=== PATIENT | female | born 1945 | race Caucasian/White ===

== ENCOUNTER → 2017-12-04 | Outpatient (CLI) | payer MEDICARE, OTHER ==
[~2017-12-04] MED LIST: CAND16 PO; NEBI5 PO
[2017-12-04 08:47] LABS: BASOPHILS ABSOLUTE AUTO 0.03 K/mm3 (0.00-0.23); BASOPHILS PERCENT AUTO 0 % (0-2); EOSINOPHILS ABSOLUTE AUTO 0.13 K/mm3 (0.00-0.68); EOSINOPHILS PERCENT AUTO 2 % (0-6); Hematocrit 37.1 % (33.0-51.0); Hemoglobin 12.6 g/dL (11.5-16.0); IMMATURE GRAN ABSOLUTE AUTO 0.02 K/mm3 (0.00-0.10); IMMATURE GRAN PERCENT AUTO 0 % (0-1); LYMPHOCYTES ABSOLUTE AUTO 2.36 K/mm3 (0.84-5.20); LYMPHOCYTES PERCENT AUTO 35 % (21-46); MONOCYTES ABSOLUTE AUTO 0.42 K/mm3 (0.16-1.47); MONOCYTES PERCENT AUTO 6 % (4-13); Mean Corpuscular HGB 31.3 pg (26.0-34.0); Mean Corpuscular Volume 92 fL (80-100); Mean Platelet Volume 9.1 fL (9.1-12.4); NEUTROPHILS ABSOLUTE AUTO 3.76 K/mm3 (1.96-9.15); NEUTROPHILS PERCENT AUTO 56 % (41-73); Platelet Count 260 K/mm3 (150-400); RDW Coefficient Variation 12.8 % (11.7-14.2); RDW Standard Deviation 43.1 fL (35.1-46.3); Red Blood Cell Count 4.02 M/mm3 (3.80-5.20); White Blood Cell Count 6.72 K/mm3 (4.00-11.30)
[2017-12-04 09:13] LABS: Alanine Aminotransfer (ALT/SGP 23 U/L (12-78); Albumin, Blood 3.8 g/dL (3.4-5.0); Albumin/Globulin Ratio 1.1 (0.8-1.8); Alk Phos 120 U/L (40-126); Anion Gap 7 mmol/L (6-16); Aspartate Aminotrans (AST/SGOT 15 U/L (12-37); Bilirubin, Total 0.3 mg/dL (0.1-1.0); Blood Urea Nitrogen 16 mg/dL (8-24); Bun/Creatinine Ratio 14.4 (12.0-20.0); CO2, Blood 28 mmol/L (21-32); Calcium, Blood 9.1 mg/dL (8.5-10.1); Chloride, Blood 105 mmol/L (98-108); Creatinine, Blood 1.11 mg/dL (0.40-1.00); Globulin, Blood 3.5 g/dL (2.2-4.0); Glomerular Filtration Rate 48 (60-); Glucose, Blood 96 mg/dL (70-99); Magnesium, Blood 1.9 mg/dL (1.6-2.4); Potassium, Blood 3.8 mmol/L (3.5-5.5); Sodium, Blood 140 mmol/L (136-145); Thyroid Stimulating Hormone 2.061 uIU/mL (0.360-4.800); Total Protein, Blood 7.3 g/dL (6.4-8.2); Troponin I <0.017 ng/mL (0.000-0.040)
== END | disposition home or self-care (01) ==
LOC: LAB 08:43
PROVIDERS: Physician Assistant Medical
DX: R00.2 Palpitations (principal); R07.9 Chest pain, unspecified; R06.00 Dyspnea, unspecified
CPT/HCPCS: 80053; 83735; 83880; 84443; 84484; 85025

== ENCOUNTER 2023-02-26 11:05 | Observation (INO) | payer MEDICARE, OTHER ==
[~2023-02-26] VITALS: Ht 162.6 cm; Wt 82.5 kg
[2023-02-26] MEDS ORDERED: FAMO20 PO (11:24)
[2023-02-26 12:24] LABS: BASOPHILS ABSOLUTE AUTO 0.04 K/mm3 (0.00-0.23); BASOPHILS PERCENT AUTO 1 % (0-2); EOSINOPHILS ABSOLUTE AUTO 0.09 K/mm3 (0.00-0.68); EOSINOPHILS PERCENT AUTO 1 % (0-6); Hematocrit 39.1 % (33.0-51.0); Hemoglobin 13.1 g/dL (11.5-16.0); IMMATURE GRAN ABSOLUTE AUTO 0.02 K/mm3 (0.00-0.10); IMMATURE GRAN PERCENT AUTO 0 % (0-1); LYMPHOCYTES ABSOLUTE AUTO 2.26 K/mm3 (0.84-5.20); LYMPHOCYTES PERCENT AUTO 28 % (21-46); MONOCYTES ABSOLUTE AUTO 0.52 K/mm3 (0.16-1.47); MONOCYTES PERCENT AUTO 6 % (4-13); Mean Corpuscular HGB 30.6 pg (26.0-34.0); Mean Corpuscular HGB Conc 33.5 g/dL (31.5-36.5); Mean Corpuscular Volume 91 fL (80-100); NEUTROPHILS PERCENT AUTO 64 % (41-73); Platelet Count 295 K/mm3 (150-400); RDW Coefficient Variation 12.9 % (11.7-14.2); RDW Standard Deviation 43.1 fL (35.1-46.3); Red Blood Cell Count 4.28 M/mm3 (3.80-5.20); White Blood Cell Count 8.13 K/mm3 (4.00-11.30)
[2023-02-26 12:47] LABS: Albumin, Blood 3.8 g/dL (3.4-5.0); Albumin/Globulin Ratio 1.2 (0.8-1.8); Bilirubin, Total 0.7 mg/dL (0.1-1.0); Bun/Creatinine Ratio 23.8 (12.0-20.0); Calcium, Blood 9.4 mg/dL (8.5-10.1); Creatinine, Blood 1.05 mg/dL (0.40-1.00); Globulin, Blood 3.3 g/dL (2.2-4.0); Total Protein, Blood 7.1 g/dL (6.4-8.2)
[2023-02-26 13:33] LABS: Influenza A, PCR NEGATIVE (NEGATIVE); Influenza B, PCR NEGATIVE (NEGATIVE); Resp Syncytial Virus, PCR NEGATIVE (NEGATIVE); SARS-Cov-2 (COVID-19) PCR, MMC NEGATIVE (NEGATIVE)
[2023-02-26 18:21] VITALS: BP 157/100
--- NOTE | 2023-02-26 18:25 | NUR ---
NEW ER ADMIT Patient admitted for chest pain, denies cardiac sx at this time. Telemetry ordered. Patient is AOx4, independent in the room. IV in right AC placed by EFM. Cardiac diet ordered. Vitals stable, BP elevated. Will continue plan of care.
[2023-02-26 19:37] VITALS: BP 139/75
[2023-02-27 03:32] VITALS: BP 119/62
--- NOTE | 2023-02-27 03:46 | NUR ---
SHIFT UNREMARKABLE. PT HAD MANY QUESTIONS ABOUT NIGHT TIME MEDICATIONS, NEED FOR THEM, THEIR EFFECTS, AND MORE. ULTIMATELY DECIDED TO TAKE THE [place] BUT REFUSED [facility] FOR TIME BEING. WANTS TO HAVE CONVERSATION WITH PRESCRIBING PHYSICIAN AND POSSIBLY HER PCP BEFORE TAKING NEW MEDICATIONS. OTHERWISE SHIFT HAS BEEN VERY UNREMARKABLE. PT HAS BEEN AOX4, PLEASANT, COOPERATIVE WITH CARE. VERY APPRECIATIVE OF CARE. TRANSFERS INDEPENDENTLY WITHIN ROOM. CALLS APPROPRIATELY. BED LOCKED IN LOWEST POSITION. CALL LIGHT LEFT WITHIN REACH.
[2023-02-27 05:26] LABS: BASOPHILS ABSOLUTE AUTO 0.03 K/mm3 (0.00-0.23); BASOPHILS PERCENT AUTO 0 % (0-2); EOSINOPHILS ABSOLUTE AUTO 0.23 K/mm3 (0.00-0.68); EOSINOPHILS PERCENT AUTO 3 % (0-6); Hematocrit 36.2 % (33.0-51.0); IMMATURE GRAN ABSOLUTE AUTO 0.01 K/mm3 (0.00-0.10); IMMATURE GRAN PERCENT AUTO 0 % (0-1); LYMPHOCYTES ABSOLUTE AUTO 2.61 K/mm3 (0.84-5.20); LYMPHOCYTES PERCENT AUTO 35 % (21-46); MONOCYTES ABSOLUTE AUTO 0.54 K/mm3 (0.16-1.47); MONOCYTES PERCENT AUTO 7 % (4-13); Mean Corpuscular HGB 30.7 pg (26.0-34.0); Mean Corpuscular HGB Conc 33.1 g/dL (31.5-36.5); Mean Corpuscular Volume 93 fL (80-100); Mean Platelet Volume 9.5 fL (9.1-12.4); NEUTROPHILS ABSOLUTE AUTO 3.98 K/mm3 (1.96-9.15); NEUTROPHILS PERCENT AUTO 54 % (41-73); Platelet Count 263 K/mm3 (150-400); RDW Coefficient Variation 13.3 % (11.7-14.2); RDW Standard Deviation 45.1 fL (35.1-46.3); Red Blood Cell Count 3.91 M/mm3 (3.80-5.20)
[2023-02-27 05:53] LABS: Albumin, Blood 3.4 g/dL (3.4-5.0); Albumin/Globulin Ratio 1.2 (0.8-1.8); Bilirubin, Total 0.7 mg/dL (0.1-1.0); Bun/Creatinine Ratio 21.4 (12.0-20.0); Calcium, Blood 8.7 mg/dL (8.5-10.1); Creatinine, Blood 1.12 mg/dL (0.40-1.00); Globulin, Blood 2.9 g/dL (2.2-4.0); Magnesium, Blood 1.9 mg/dL (1.6-2.4); Phosphorus, Blood 3.3 mg/dL (2.5-4.9); Potassium, Blood 3.9 mmol/L (3.5-5.5); Thyroid Stimulating Hormone 1.25 uIU/mL (0.360-4.800); Total Protein, Blood 6.3 g/dL (6.4-8.2)
[2023-02-27 08:04] VITALS: BP 151/84
[2023-02-27] MEDS ORDERED: LOSA50 PO (11:19)
[2023-02-27] MEDS ORDERED: ELIQUIS5 M2 PO (11:20)
[2023-02-27] MEDS ORDERED: METOPROLOL SUCC25 MG PO (11:21)
--- NOTE | 2023-02-27 14:43 | NUR ---
DISCHARGE MS MONTES DE OCA WAS DISCHARGED HOME WITH HER GRANDDAUGHTER AT 1400HRS. PIV WAS PAINFUL AND REMOVED THIS AM, ATTEMPTED TO REPLACE X 4 WITH RN AND 2 RELIEF CHARGE RNS, THEN D/C ORDERS PLACED SO ABORTED. PT VERY TOLERANT OF ATTEMPTS. SHE REFUSED ELO[facility] THIS AM, WANTING TO DISCUSS WITH DR MCCARTHY. SHE THEN AGREED TO TAKE [facility] A HOME PRESCRIPTION BUT WANTED IT SENT TO [facility] MA[facility] DUE TO EXPENSE OF PRESCRIPTION. DR MCCARTHY INFORMED THAT PT MAY NOT GET PRESCRIPTION UNTIL RECEIVED IN THE MAIL, NO CHANGE IN ORDERS. PT WILL TRY AT HER CLINIC FOR SAMPLES AFTER DISCHARGE. PT IN SR WHEN ON TELEMETRY, NO CALLS FROM [employer].
== END 2023-02-27 14:13 | disposition home or self-care (01) ==
LOC: ER 11:05 → MEDS 11:06
PROVIDERS: Emergency Medicine; ADMIT Internal Medicine
DX: I48.91 Unspecified atrial fibrillation (principal); I12.9 Hypertensive chronic kidney disease with stage 1 through stage 4 chronic kidney disease, or unspecified chronic kidney disease; N18.31 Chronic kidney disease, stage 3a; K21.9 Gastro-esophageal reflux disease without esophagitis; E78.5 Hyperlipidemia, unspecified; Z79.899 Other long term (current) drug therapy; Z88.5 Allergy status to narcotic agent; Z20.822 Contact with and (suspected) exposure to COVID-19
CPT/HCPCS: 0241U; 36415; 71045; 80053; 83036; 83735; 83880; 84100; 84443; 84484; 85025; 93005; 93010; 96360; 96361; 99285-25; A9270; G0378; J7030

== ENCOUNTER 2024-07-21 08:31 | Day surgery (SDC) | payer MEDICARE, OTHER ==
[~2024-07-21] VITALS: Ht 162.6 cm; Wt 85.4 kg
[2024-07-21] VITALS (15 sets, daily range): BP systolic 119–190; BP diastolic 58–114
[~2024-07-21 08:31] MED LIST changes: +Amlodipine Bes2.5 MG PO; +ELIQUIS5 M2 PO; +FAMO20 PO; +LOSA50 PO; +METOPROLOL SUCC25 MG PO
[2024-07-21] MEDS ORDERED: Lactated Ringer's 1,000 ML IV SCH ×2 (09:00→10:55)
[2024-07-21] MEDS ORDERED: Chlorhexidine Mouth Care 15 ML UDC MT SCH (09:00)
[2024-07-21] MEDS ORDERED: Ropivacaine 0.5% HCl/Pf 123.125 MG,EPINEPHrine HCL 0.25 MG,Ketorolac Tromethamine 15 MG... INFIL SCH (09:00)
[2024-07-21] MEDS ORDERED: CeFAZolin Sodium 2,000 MG in NS 100 ML IV SCH ×2 (09:00→19:00)
[2024-07-21] MEDS ORDERED: Acetaminophen 500 MG Tab PO SCH ×2 (09:00→16:00)
[2024-07-21] MEDS ORDERED: OxyCODONE HCL 10 MG TABCR PO SCH (09:00)
[2024-07-21] MEDS ORDERED: Tranexamic Acid 100 ML IV SCH (09:06)
--- NOTE | 2024-07-21 10:40 | NUR ---
History, Chart, Medications and Allergies reviewed before start of procedure.PRE OP TEACHING DONE. LUNGS CLEAR. FAMILY AT BEDSIDE
[2024-07-21] MEDS ORDERED: OxyCODONE HCL 5 MG TAB PO PRN ×2 (10:45→10:50)
[2024-07-21] MEDS ORDERED: Midazolam HCl 1MG / ML 2ML Vial IV ONE (10:45)
[2024-07-21] MEDS ORDERED: Promethazine HCl 25 MG Tab PO PRN ×2 (10:50→18:55)
[2024-07-21] MEDS ORDERED: Magnesium Hydroxide Conc 10 ML UDC PO PRN (10:50)
[2024-07-21] MEDS ORDERED: Metoclopramide HCl 5MG / ML 2ML Vial IV PRN (10:50)
[2024-07-21] MEDS ORDERED: Ondansetron HCl 2 MG / ML 2ML Vial IV PRN (10:50)
[2024-07-21] MEDS ORDERED: DiphenhydrAMINE HCL 25 MG Cap PO PRN (10:55)
[2024-07-21] MEDS ORDERED: Bisacodyl 10 MG Supp PR PRN (10:55)
[2024-07-21] MEDS ORDERED: HYDROmorphone HCl/Pf 1MG SYR IV PRN (10:55)
[2024-07-21] MEDS ORDERED: Midazolam HCl 1MG / ML 2ML Vial ONE (10:59)
[2024-07-21] MEDS ORDERED: FLU VACC TS2024-25(6MOS UP)/PF 45 MCG/0.5 ML SYRINGE IM SCH (11:00)
[2024-07-21] MEDS ORDERED: propofoL 50 ML IV ONE ×2 (11:02→11:03)
[2024-07-21] MEDS ORDERED: Ketorolac Tromethamine 15mg Vial IV SCH (12:00)
[2024-07-21] MEDS ORDERED: Phenylephrine HCl 10mg/ml 1 ml Vial ONE (12:51)
[2024-07-21] MEDS ORDERED: FentaNYL Citrate 50 MCG/ML 2 ML Injection ONE (13:11)
[2024-07-21] MEDS ORDERED: Ketorolac Tromethamine 30mg Vial ONE (13:22)
--- NOTE | 2024-07-21 19:40 | NUR ---
SHIFT SUMMARY POD0 R TKA, A/OX4, VSS, PAIN WELL MANAGED, SHE HAS HAD SOME NAUSEA AND HAS REPORTED THE MEDS SHE HAS BEEN GIVEN ARE NOT HELPING, DISCUSSED OTHER OPTIONS BUT SHE STATES SHE IS NERVOUS TO TRY ANYMORE, THIS WAS DISCUSSED WITH NOC RN. WORKED WITH THERAPY, AMBULATES WELL. NO OTHER EVENTS THIS SHIFT, CALL LIGHT IN REACH.
[2024-07-21] MEDS ORDERED: Apixaban 5 MG Tab PO SCH (21:00)
[2024-07-21] MEDS ORDERED: Docusate Sodium 100 MG Cap PO SCH (21:00)
[2024-07-21] MEDS ORDERED: Famotidine 20 MG Tab PO SCH (21:00)
[2024-07-22 00:08] VITALS: BP 133/73
[2024-07-22 04:55] VITALS: BP 144/69
[2024-07-22 05:23] LABS: BASOPHILS ABSOLUTE AUTO 0.01 K/mm3 (0.00-0.23); BASOPHILS PERCENT AUTO 0 % (0-2); EOSINOPHILS ABSOLUTE AUTO 0.01 K/mm3 (0.00-0.68); EOSINOPHILS PERCENT AUTO 0 % (0-6); Hematocrit 33.8 % (33.0-51.0); Hemoglobin 11.2 g/dL (11.5-16.0); IMMATURE GRAN ABSOLUTE AUTO 0.09 K/mm3 (0.00-0.10); IMMATURE GRAN PERCENT AUTO 1 % (0-1); LYMPHOCYTES ABSOLUTE AUTO 1.45 K/mm3 (0.84-5.20); LYMPHOCYTES PERCENT AUTO 16 % (21-46); MONOCYTES ABSOLUTE AUTO 0.64 K/mm3 (0.16-1.47); MONOCYTES PERCENT AUTO 7 % (4-13); Mean Corpuscular HGB 31.5 pg (26.0-34.0); Mean Corpuscular HGB Conc 33.1 g/dL (31.5-36.5); Mean Corpuscular Volume 95 fL (80-100); NEUTROPHILS ABSOLUTE AUTO 7.14 K/mm3 (1.96-9.15); NEUTROPHILS PERCENT AUTO 76 % (41-73); Platelet Count 221 K/mm3 (150-400); RDW Coefficient Variation 13.2 % (11.7-14.2); RDW Standard Deviation 45.9 fL (35.1-46.3); Red Blood Cell Count 3.56 M/mm3 (3.80-5.20); White Blood Cell Count 9.34 K/mm3 (4.00-11.30)
[2024-07-22 05:47] LABS: Bun/Creatinine Ratio 16.5 (12.0-20.0); Calcium, Blood 8.8 mg/dL (8.5-10.1); Creatinine, Blood 0.97 mg/dL (0.40-1.00); Potassium, Blood 4.3 mmol/L (3.5-5.5)
--- NOTE | 2024-07-22 07:45 | NUR ---
SHIFT SUMMARY NOC. PT POD 1 FOR R TOTAL KNEE. PT MEDICATED FOR NAUSEA WITH REPORTED RELIEF. PT MEDICATED FOR PAIN WITH SCHEDULED MEDS, NO PRN PAIN NEEDED. PT VOIDING URINE. AQUACEL C/D/I WITH ZAY AND POLAR PACK. CALL LIGHT IN REACH.
[2024-07-22 07:47] VITALS: BP 140/72
[2024-07-22] MEDS ORDERED: Metoprolol Succinate 25 MG TABCR PO SCH (09:00)
[2024-07-22] MEDS ORDERED: Losartan Potassium 50 MG Tab PO SCH (09:00)
[2024-07-22] MEDS ORDERED: AmLODIPine Besylate 5 MG Tab PO SCH (09:00)
--- NOTE | 2024-07-22 12:05 | NUR ---
DISCHARGE SUMMARY POD1 R TKA, A/OX4, VSS, TOLERATING PO, PAIN WELL MANAGED, VOIDIN INDEPENDENTLY, AMBULATIN WELL, WORKED WITH THERAPY THIS AM, NAUSEAA HAS IMPROVED SIGNIIFICANTLY SINCE YESTERDAY, CATALINAELL C/D/I WITH ACCE WRAP IN PLACE. DISCUSSED DC INSTRUCTIONS INCLUDING HOME CARE, MEDICATIONS, AND FOLLOW UP APPOINTMENTS. IV ACCESS REMOVED DURING DC INSTRUCTIONS, NO QUESTINGS ATTHIS TIME, ESCORTED OUT VIA WC TO PRIVATE AUTO TO GO HOME.
== END 2024-07-22 11:55 | disposition home or self-care (01) ==
LOC: ORSCMMR 08:31 → ORD 09:45 → ORSCMMR 10:00 → SURS 13:26 → ORSCMMR 07-22 11:55
PROVIDERS: Orthopaedic Surgery
PROC: 8E0Y0CZ Robotic Assisted Procedure of Lower Extremity, Open Approach (ICD-10-PCS; principal; 2024-07-21 10:00)
PROC: 0SRC0JA Replacement of Right Knee Joint with Synthetic Substitute, Uncemented, Open Approach (ICD-10-PCS; principal; 2024-07-21 10:00)
DX: M17.0 Bilateral primary osteoarthritis of knee (principal); I48.91 Unspecified atrial fibrillation; Z79.01 Long term (current) use of anticoagulants; I10 Essential (primary) hypertension; K21.9 Gastro-esophageal reflux disease without esophagitis; Z79.899 Other long term (current) drug therapy
CPT/HCPCS: 36415; 73560-RT; 80048; 85025; 97110; 97161; 97530; A6010; A9270; C1713; C1776; J0171; J0690; J0735; J1170; J1171; J1885; J2250; J2371; J2405; J2704; J2765; J2795; J3010; J7120